=== PATIENT | female | born 1955 | race Caucasian/White ===

== ENCOUNTER → 2017-06-23 | Outpatient (CLI) | payer OTHER ==
[~2017-06-23] MED LIST: JOINCAP2 PO; LEVO.075 PO; MAGN400T3 PO; VITA1000 PO; VITA500C18 PO
[2017-06-23 09:21] LABS: HEMATOCRIT 37.6 % (35.0-46.0); HEMOGLOBIN 12.9 GM/DL (11.6-15.3); MEAN CELL VOLUME 96.8 FL (80.0-100.0); MEAN CORPUSCULAR HEMOGLOBIN 33.2 PG (27.0-34.0); MEAN CORPUSCULAR HGB CONC 34.4 % (32.0-36.0); MEAN PLATELET VOLUME 9.2 FL (7.0-11.0); PLATELET COUNT 286 TH/MM3 (150-450); RED BLOOD COUNT 3.89 MIL/MM3 (4.00-5.30); RED CELL DISTRIBUTION WIDTH 13.3 % (11.6-17.2); WHITE BLOOD COUNT 4.1 TH/MM3 (4.0-11.0)
[2017-06-23 09:41] LABS: BILIRUBIN, URINE NEG (NEG); BLOOD, URINE NEG (NEG); GLUCOSE,URINE NEG (NEG); KETONE, URINE NEG (NEG); MUCUS URINE FEW /lpf (OCC); NITRITE,URINE NEG (NEG); URINE COLOR YELLOW (YELLW/STRAW); URINE LEUKOCYTE ESTERASE NEG (NEG)
[2017-06-23 09:51] LABS: BICARBONATE 28.8 MEQ/L (21.0-32.0); CALCIUM 9.4 MG/DL (8.5-10.1); CREATININE 0.75 MG/DL (0.50-1.00)
--- NOTE | 2017-06-25 00:33 | EKG ---
Date Performed: 06/23/2017 Time Performed: 08:34:26 PTAGE: 62 years EKG: Sinus rhythm NORMAL ECG NO PREVIOUS TRACING DOCTOR: Harlan Dickerson Interpretating Date/Time 06/25/2017 00:32:41
== END ==
LOC: CPRE 07:53
PROVIDERS: ATTEND Orthopaedic Surgery
DX: Z01.812 Encounter for preprocedural laboratory examination (principal); Z01.810 Encounter for preprocedural cardiovascular examination; M87.051 Idiopathic aseptic necrosis of right femur; M16.11 Unilateral primary osteoarthritis, right hip; M79.609 Pain in unspecified limb
CPT/HCPCS: 36415; 80048; 81001; 85027; 85610; 85730; 93005

== ENCOUNTER → 2017-08-04 | Outpatient (CLI) | payer OTHER ==
[2017-08-04 10:48] LABS: BASOPHIL % 0.7 % (0.0-2.0); EOSINOPHIL # 0.2 TH/MM3 (0-0.4); EOSINOPHIL % 3.8 % (0.0-4.0); HEMOGLOBIN 12.9 GM/DL (11.6-15.3); LYMPH % 43.3 % (9.0-44.0); MEAN CELL VOLUME 97.2 FL (80.0-100.0); MEAN PLATELET VOLUME 9.7 FL (7.0-11.0); MONO % 9.3 % (0.0-8.0); MONOCYTE # 0.4 TH/MM3 (0-0.9); NEUT % 42.9 % (16.0-70.0); PLATELET COUNT 282 TH/MM3 (150-450); RED BLOOD COUNT 3.91 MIL/MM3 (4.00-5.30); RED CELL DISTRIBUTION WIDTH 13.7 % (11.6-17.2); WHITE BLOOD COUNT 4.7 TH/MM3 (4.0-11.0)
[2017-08-04 10:58] LABS: BACTERIA, URINE RARE /hpf; BILIRUBIN, URINE NEG (NEG); BLOOD, URINE NEG (NEG); GLUCOSE,URINE NEG (NEG); KETONE, URINE NEG (NEG); NITRITE,URINE NEG (NEG); PH, URINE 5.5 (5.0-8.5); URINE COLOR YELLOW (YELLW/STRAW); URINE LEUKOCYTE ESTERASE NEG (NEG)
== END ==
LOC: CPRE 08:58
PROVIDERS: ATTEND Orthopaedic Surgery
DX: Z01.812 Encounter for preprocedural laboratory examination (principal); M87.051 Idiopathic aseptic necrosis of right femur; M16.11 Unilateral primary osteoarthritis, right hip; M79.609 Pain in unspecified limb; R82.99 Other abnormal findings in urine
CPT/HCPCS: 36415; 81001; 85025; 87086

== ENCOUNTER 2017-08-15 05:10 | Inpatient (IN) | payer OTHER ==
[~2017-08-15] VITALS: Ht 162.6 cm; Wt 67.4 kg
[2017-08-15] MEDS ORDERED: CHLORHEXIDINE GLUCONATE 4% SOLN 120 ML BTL TOPICAL SCH (05:30)
[2017-08-15] MEDS ORDERED: CEFAZOLIN INJ 2,000 MG in SODIUM CHLORIDE 0.9% INJ 100 ML IV SCH (05:30)
[2017-08-15] MEDS ORDERED: METOPROLOL TARTRATE 25 MG TAB PO PRN (05:45)
[2017-08-15] MEDS ORDERED: LACTATED RINGER'S 1000 ML IV PRN (05:45)
[2017-08-15] MEDS ORDERED: POVIDONE IODINE 5% (ANTISEPSIS KIT) 4 APPLICATIONS EACH NARE PRN (05:45)
[2017-08-15] MEDS ORDERED: SODIUM CHLORID 0.9% 500 ML IV PRN (05:45)
[2017-08-15] MEDS ORDERED: CHLORHEXIDINE GLUCONATE 2 % 1 PACK (2 CLOTHS) TOPICAL PRN (05:45)
[2017-08-15] MEDS ORDERED: ceFAZolin INJ 1,000 MG VIAL ONE (06:10)
[2017-08-15] MEDS ORDERED: GENTAMICIN SULFATE 80 MG/2 ML VIAL ONE (06:11)
[2017-08-15] MEDS ORDERED: EXPAREL PERI-ARTICULAR INJECTION (TOTAL VOL. 60 ML) P-ARTICULR SCH ×2 (07:00)
[2017-08-15] MEDS ORDERED: SODIUM CHLORIDE 0.9% IV SCH ×2 (07:00→10:00)
[2017-08-15] MEDS ORDERED: TRANEXAMIC ACID IV SCH ×2 (07:00→10:00)
--- NOTE | 2017-08-15 09:07 | HHI.FF ---
Face to Face Verification Diagnosis: (1) Status post total hip replacement, right Physical Therapy Gait training Hip: Total hip, Protocol: Right, Posterior hip precautions, Progress to weight bearing Canvas Knee Splint: When in bed & 2 pillows btw thighs Right LE Weight Bearing: WB as tolerated Right LE Range of Motion: Active ROM Nursing Nursing: Dressing changes Dressing Changes: Daily dressing change, Coverderm/Primapore Additional Instructions Not remove Dermabond Prineo. I have seen patient Melisa Devine on 08/15/17. My clinical findings support the need for the requested home health care services because: Ltd mobility - disease progression Limited ability to care for self High risk of falls I certify that my clinical findings support that this patient is homebound because: Post-op weakness Unsteady gait/balance Unsafe to leave home unassisted Lalitha Sellers MD ([place]) Aug 15, 2017 09:07
[2017-08-15] MEDS ORDERED: ECASA81 PO (09:09)
[2017-08-15] MEDS ORDERED: HYDR-3580 PO (09:09)
[2017-08-15] MEDS ORDERED: MAGNESIUM HYDROXIDE SUSP 30 ML CUP PO PRN (09:15)
[2017-08-15] MEDS ORDERED: Post-op Orders (for Pharmacy) XX ONE (09:15)
[2017-08-15] MEDS ORDERED: BISACODYL 10 MG SUPP RECTAL PRN (09:15)
[2017-08-15] MEDS ORDERED: ACETAMINOPHEN/HYDROcodone 325 MG/7.5 MG TAB PO PRN (09:15)
[2017-08-15] MEDS ORDERED: ONDANSETRON HCL 4 MG/2 ML VIAL IVP PRN (09:15)
[2017-08-15] MEDS ORDERED: TRANEXAMIC ACID INJ 0 MG in SODIUM CHLORIDE 0.9% INJ 100 ML IV SCH (09:15)
--- NOTE | 2017-08-15 09:20 | PD.OP ---
Operative Report Date of Surgery: Aug 15, 2017 Preoperative Diagnosis: (1) Osteonecrosis of right hip (2) Primary osteoarthritis of right hip Postoperative Diagnosis: (1) Osteonecrosis of right hip (2) Primary osteoarthritis of right hip Procedure: Right total hip arthroplasty using Maged prosthesis. Anesthesia: Gen. endotracheal with supplemental local with Exparel. Surgeon: Aidan Sellers M.D. Change Advisor(s): RAMIREZ Puente Operation and Findings: Indications and Findings: This 62-year-old woman has had right hip pain for in excess of 6 months. This has been progressive and progressively disabling. Her ambulation tolerance is 1 block. She has difficulty entering and exiting vehicles and has difficulty with any stairs or standing from a seated position. She has episodic giving way. She has not responded to conservative measures including anti-inflammatory agents analgesics and activity modification and exercises and ambulatory aids. Physical findings showed limited range of motion with tenderness on motion. X-rays and MRI show changes in the femoral head consistent with osteonecrosis of the femoral head with degenerative change with osteophyte and cyst formation in the acetabular as well as the femoral side. Intraoperative findings: There was significant irregularity and articular damage to the femoral head with osteophytes, open areas of bone and destruction. In addition the acetabulum had some osteophytes as well as degenerative cysts. Implants: The femoral component was a Maged Accolade 2 stem, size 5 with a 132 neck angle. The head was a Biolox delta, with a 32 millimeter outer diameter, -4 millimeter neck length. The acetabular component is a Tritanium cluster shell, size 52 outer diameter with a 0, X3 polyethylene liner, size 32 millimeters inner diameter. The patient was brought to the clean air operating suite and a general endotracheal anesthetic was administered. The patient was then positioned into a lateral position with the right hip up on a Penemarie K Murphy lateral positioner. The hip and lower extremity were then prepped with alcohol, Hibiclens and ChloraPrep and draped in the usual manner with the hip draped free. Patient received prophylactic antibiotics preoperatively. The patient also received tranexamic acid preoperatively. An appropriate timeout procedure was carried out. An incision was then made from the midportion of the greater trochanter proximally and posteriorly paralleling the fibers of the gluteus iqra. The incision was deepened through subcutaneous tissues down to the fascia felix and gluteus fascia. The gluteus fascia was then split longitudinally in line with its fibers up to the upper portion of the fascia felix. With wound towels in place, the Charnley retractor was inserted. The sciatic nerve was identified and protected throughout the procedure. Dissection was then carried down to the interval between the gluteus minimus and the piriformis. A retractor was inserted. The piriformis and obturator conjoined tendon was released from the greater trochanter and reflected off the capsule. A capsulotomy was made longitudinally along the femoral neck to the base of the femoral neck and then curved distally along the posterior aspect of the greater trochanter. The hip was then internally rotated. Further release of the external rotators was carried out exposing the hip. The hip was then dislocated. The femoral neck was transected at the appropriate level using the oscillating saw placement of appropriate retractors. The femoral head was then removed. Preparation of the femur was initiated with a box osteotome followed by a curet to identify the medullary canal. Broaching was then initiated with the size 0 broach and went and 1 size increments up to size 5. The broach handle was removed. The femoral neck was then trimmed with a calcar planar. Attention was then directed to the acetabulum. Soft tissues were debrided from the acetabulum. Retractors were placed about the acetabulum. Reaming was then initiated with the 47 millimeter reamer and went in to millimeter increments up to size 51 and then in 1 mm increments up to the 52 millimeter diameter reamer. A trial reduction with the -4 millimeter trial prosthesis was carried out. When this was deemed to be appropriate, the trial prosthesis was removed. The acetabulum was then irrigated and cleaned. The actual prosthesis as noted above was then impacted into place and seated appropriately. Drill holes were then made and sounded. Appropriate sized screws were then inserted to stabilize the acetabulum further. The liner as noted above was then inserted into the acetabular shell and impacted into place. Osteophytes were trimmed from the acetabulum. Local anesthetic was then administered throughout the area of the acetabulum and anterior aspect of the femur. The trial neck was then placed on the broach for the above-noted prosthesis. The femoral head trial was placed onto the femoral neck with the external diameter of the head being 32 millimeters and the neck length being -4 millimeters. A trial reduction was then carried out. The stability, leg length and motion were excellent. There was no pistoning. The trial prosthesis was removed. The broach was removed. The femoral component was then impacted into the medullary canal of the femur after irrigation and suctioning. When this was appropriately seated a trial reduction was again carried out with the trial prosthesis. Again, there was no pistoning. The leg length was appropriate. The stability and motion were excellent. The trial prosthesis was then removed. After cleaning and drying the trunion of the femoral component, the above-noted femoral head was impacted onto the trunnion. The hip was then reduced. The stability and mobility were again checked along with leg lengths as noted above. The hip was then positioned appropriately and closure commenced after the remainder of the local anesthetic was injected throughout the hip. The external rotators and capsule were then repaired with #1 Vicryl interrupted transosseous sutures with a Krakw technique to reattach the external rotators and capsule to the posterior aspect of the greater trochanter. The capsule itself on the superior aspect was closed with #1 Vicryl interrupted [id number] sutures. The sciatic nerve was again inspected. The fascia felix and gluteus fascia were then repaired with #1 Vicryl interrupted [id number] sutures. The subcutaneous tissues were closed with 2-0 Vicryl interrupted simple sutures with buried knots. The skin was closed with a continuous subcuticular closure of 4-0 Monocryl. The wound was then approximated with Dermabond Prineo. A dry dressing was applied to the hip. A knee immobilizer was applied to the leg. The patient was then transferred from the operating room to the recovery room in satisfactory condition having tolerated the procedure well. Counts are correct. Specimens: None. Estimated blood loss: 200 mL Lalitha Sellers MD ([place]) Aug 15, 2017 09:20
[2017-08-15] MEDS ORDERED: DO NOT ADM ANY ANTICOAGULANT DRUGS PRN (09:24)
[2017-08-15] MEDS ORDERED: MIDAZOLAM HCL 2 MG/2 ML VIAL ONE (09:31)
[2017-08-15] MEDS ORDERED: *morphine SULFATE 4 MG/ML PERIprocedure ONLY ONE (09:47)
[2017-08-15] MEDS: LACTATED RINGER'S 1000 ML INJ 1,000 ML IV SCH (10:15)
--- NOTE | 2017-08-15 11:26 | RADRPT ---
EXAM DATE/TIME: 08/15/2017 10:17 [place] COMPARISON: No previous studies available for comparison. INDICATIONS : Post-op right hip. MEDICAL HISTORY : None. SURGICAL HISTORY : None. ENCOUNTER: Initial ACUITY: 1 day PAIN SCORE: 0/10 LOCATION: Right Hip. FINDINGS: There is a right total hip arthroplasty that appears intact and normally aligned. No unexpected radio paque objects. No fracture. CONCLUSION: Expected radiographic appearance after right total hip arthroplasty. No acute complication demonstrat ed. Reed Kline MD on August 15, 2017 at 11:23 Board Certified Radiologist. This report was verified electronically.
[2017-08-15] MEDS ORDERED: MORPHINE SULFATE 4 MG/ML INJ IV PUSH PRN (11:30)
[2017-08-15] MEDS ORDERED: DEXAMETHASONE SOD PHOS 4 MG/ML VIAL IV ONE (12:00)
[2017-08-15] MEDS ORDERED: PHENYLEPH/NS 1000 MCG/10 ML SYR IV ONE (12:00)
[2017-08-15] MEDS ORDERED: ePHEDrine/NS 25 MG/5 ML SYRINGE IV ONE (12:00)
[2017-08-15] MEDS ORDERED: ROCURONIUM INJ 50 MG/5 ML SYRINGE IV PUSH ONE (12:00)
[2017-08-15] MEDS ORDERED: PROPOFOL 200 MG/20 ML AMP IV ONE (12:00)
[2017-08-15] MEDS ORDERED: LIDOCAINE HCL 1% PF 5 ML SYRINGE OTHER ONE (12:00)
[2017-08-15] MEDS ORDERED: LACTATED RINGER'S 1000 ML INJ 1,000 ML IV ONE (12:00)
[2017-08-15] MEDS ORDERED: GLYCOPYRROLATE 1 MG/5 ML SYRINGE IV PUSH ONE (12:00)
[2017-08-15] MEDS ORDERED: NEOSTIGMINE 5 MG/5 ML SYRINGE IV PUSH ONE (12:00)
[2017-08-15] MEDS ORDERED: ONDANSETRON HCL 4 MG/2 ML VIAL IV ONE (12:00)
[2017-08-15] MEDS: ACETAMINOPHEN/HYDROcodone 325 MG/7.5 MG TAB PO PRN (14:00)
[2017-08-15 14:39] VITALS: BP 136/86; PULSE 108; RESP 18; TEMP 97.1; O2SAT 99
[2017-08-15] MEDS: KETOROLAC TROMETHAMINE 30 MG/ML (IVP) VIAL IVP SCH ×2 (16:18→21:38)
--- NOTE | 2017-08-15 19:54 | PD.CONS ---
HPI Service [facility] Hospitalists Consult Requested By Dr Sellers Reason for Consult Medical management Primary Care Physician Herbie Bruner MD Diagnoses: History of Present Illness This is a 61-year-old female with history of hypothyroidism who presents to [facility] complaining of 8-9 months of right hip pain. The patient said that she started limping and then developed right hip pain which progressively got worst after the point where it was difficult to ambulate. The patient states that the pain was located in the right hip, nonradiating worse with ambulation and improves with rest. The patient states that she then visited Dr. Sellers who did an x-ray which did not show a clear etiology of the patient's right hip pain. An MRI of the right hip was then obtained and she was then diagnosed with some necrosis of the right hip. The patient underwent today a total hip arthroplasty performed by Dr. Sellers and I am being consulted for medical management. The patient currently denies chest pain , shortness of breath, nausea, vomiting, diarrhea, dysuria. States the pain is controlled. Postsurgical right hip x-ray showed a expected radiographic appearance of the right total hip arthroplasty. Review of Systems As per HPI, other systems reviewed by me and negative. Past Family Social History Allergies: Coded Allergies: No Known Allergies (Unverified , 08/15/17) Past Medical History 1. Osteoarthritis. 2. Hypothyroidism Past Surgical History 1. Surgical repair for detached retina is in bilateral eyes. 2. Bilateral cataract surgery. 3. Tubal ligation. 4. Facelift. 5. Breast implants. Reported Medications Reported Meds & Active Scripts Active Hydrocodone-Acetamin 7.5-325 (Hydrocodone/Acetaminophen) 7.5 Mg-325 Mg Tablet 1 Tab PO Q4H PRN Reported Joint Support Complex (Misc Natural Products) 500-100 Mg Cap 1 Cap PO DAILY Vitamin D-1000 (Cholecalciferol) 1,000 Unit Tab 1,000 Units PO DAILY Magnesium 400 Mg Tab 400 Mg PO DAILY Vitamin C Sr (Ascorbic Acid) 500 Mg Caper 500 Mg PO DAILY Synthroid (Levothyroxine Sodium) 75 Mcg Tab 75 Mcg PO DAILY Active Ordered Medications Current Medications Medications (Trade) Dose Ordered Sig/Rosalie Route Start Time Stop Time Status Last Admin (Hibiclens 4% Top Soln) 1 applic ONCE TOPICAL 08/15/17 05:30 08/18/17 05:29 Lactated Ringer's 1,000 ml @ 30 mls/hr Q24H PRN IV 08/15/17 05:45 08/18/17 05:44 08/15/17 06:00 Sodium Chloride 500 ml @ 30 mls/hr [id number] PRN IV 08/15/17 05:45 08/18/17 05:44 (Lopressor) 25 mg [employer] PRN PO 08/15/17 05:45 08/18/17 05:44 (Betadine 5% Antisepsis Kit) 1 applic [employer] PRN EACH NARE 08/15/17 05:45 08/18/17 05:44 08/15/17 06:15 (Chlorhexidine 2% Cloth) 3 pack [employer] PRN TOPICAL 08/15/17 05:45 08/18/17 05:44 08/15/17 05:30 Lactated Ringer's 1,000 ml @ 80 mls/hr [id number] IV 08/15/17 11:30 08/15/17 10:15 Cefazolin Sodium 1000 mg/Sodium Chloride 100 ml @ 200 mls/hr Q6H IV 08/15/17 13:00 08/16/17 01:29 08/15/17 18:16 (Morphine Inj) 4 mg Q3H PRN IV PUSH 08/15/17 11:30 ([place] 7.5-325 Mg) 1 tab Q4H PRN PO 08/15/17 09:15 08/15/17 14:00 ([place] 7.5-325 Mg) 2 tab Q4H PRN PO 08/15/17 09:15 (Toradol Inj) 15 mg Q6H IVP 08/15/17 16:00 08/17/17 10:01 08/15/17 16:18 (Zofran Inj) 4 mg Q6H PRN IVP 08/15/17 09:15 (Colace) 100 mg BID PO 08/16/17 21:00 (Ambien) 5 mg HS PRN PO 08/15/17 21:00 (Dulcolax Supp) 10 mg DAILY PRN RECTAL 08/15/17 09:15 (Milk Of Magnesia Liq) 30 ml DAILY PRN PO 08/15/17 09:15 (Ecotrin Ec) 81 mg BID PO 08/16/17 08:30 (Vitamin D3) 1,000 units DAILY PO 08/16/17 09:00 (Synthroid) 75 mcg DAILY@0600 PO 08/16/17 06:00 (Mag-Ox) 400 mg Q24H PO 08/16/17 11:00 Patient Own Medication PT OWN MED: ASCOR... DAILY PO 08/16/17 09:00 Future Hold Miscellaneous Information ALL NURSING DEPARTME... UNSCH PRN .XX 08/15/17 09:24 08/16/17 09:23 Family History Family history of diabetes cancer or heart disease. Social History Patient denies smoking, drinking alcohol or using illicit drugs. The patient is and has 4 children. Physical Exam Vital Signs Vital Signs Date Time Temp Pulse Resp B/P (MAP) Pulse Ox O2 Delivery O2 Flow Rate FiO2 08/15/17 14:39 97.1 108 18 136/86 (103) 99 08/15/17 14:00 82 14 123/62 (82) 100 Room Air 08/15/17 13:00 89 14 116/58 (77) 98 Nasal Cannula 2 08/15/17 12:00 83 14 130/61 (84) 100 Nasal Cannula 2 08/15/17 11:00 67 14 133/63 (86) 100 Nasal Cannula 2 08/15/17 10:30 69 14 125/67 (86) 100 Nasal Cannula 2 08/15/17 10:15 56 14 122/63 (82) 100 Nasal Cannula 2 08/15/17 10:00 59 14 113/58 (76) 100 Nasal Cannula 2 08/15/17 09:45 68 14 123/60 (81) 100 Nasal Cannula 2 08/15/17 09:28 97.5 76 14 125/58 (80) 100 Simple Mask 8 08/15/17 06:10 98.7 79 18 115/61 (79) 99 Physical Exam GENERAL: This is a well-nourished, well-developed patient, in no apparent distress. SKIN: No rashes, ecchymoses or lesions. Cool and dry. HEAD: Atraumatic. Normocephalic. No temporal or scalp tenderness. EYES: Pupils equal round and reactive. Extraocular motions intact. No scleral icterus. No injection or drainage. ENT: Nose without bleeding, purulent drainage or septal hematoma. Throat without erythema, tonsillar hypertrophy or exudate. Uvula midline. Airway patent. NECK: Trachea midline. No JVD or lymphadenopathy. Supple, nontender, no meningeal signs. CARDIOVASCULAR: Regular rate and rhythm without murmurs, gallops, or rubs. RESPIRATORY: Clear to auscultation. Breath sounds equal bilaterally. No wheezes , rales, or rhonchi. GASTROINTESTINAL: Abdomen soft, non-tender, nondistended. No hepato-splenomegaly , or palpable masses. No guarding. MUSCULOSKELETAL:wearing the knee immobilizer, dressings dry and intact. Palpable pedal pulses +2 bilateral. Good capillary refill. NEUROLOGICAL: Awake and alert. Cranial nerves II through XII intact. Motor and sensory grossly within normal limits. Five out of 5 muscle strength in all muscle groups. Normal speech. Imaging Last Impressions Hip X-Ray 08/15/17 0901 Signed Impressions: Service Date/Time: Tuesday, August 15, 2017 10:17 - CONCLUSION: Expected radiographic appearance after right total hip arthroplasty. No acute complication demonstrated. Reed Kline MD Assessment and Plan Problem List: (1) Osteonecrosis of right hip ICD Code: M87.9 - Osteonecrosis, unspecified Status: Resolved (2) Primary osteoarthritis of right hip ICD Code: M16.11 - Unilateral primary osteoarthritis, right hip Status: Resolved (3) Status post total hip replacement, right ICD Code: Z96.641 - Presence of right artificial hip joint Assessment and Plan Postsurgical management as per orthopedic surgery. We will pain control as per orthopedic surgery. Patient on [place] and morphine sulfate for breakthrough pain. Bowel regimen for constipation prevention. Continue levothyroxine for hypothyroidism. Patient can have a TSH follow-up as an outpatient. Monitor vital signs. Chemoprophylaxis as per orthopedic surgery. Code Status Full code Discussed Condition With Patient, RN. Tristian Guthrie MD Aug 15, 2017 19:54
[2017-08-15 20:13] VITALS: O2SAT 99
[2017-08-15] MEDS ORDERED: ZOLPIDEM TARTRATE 5 MG TAB PO PRN (21:00)
[2017-08-15 21:25] VITALS: BP 108/54; PULSE 88; RESP 16; TEMP 98.9; O2SAT 98
[2017-08-15 23:15] VITALS: BP 102/53; PULSE 75; RESP 16; TEMP 98.5; O2SAT 96
[2017-08-16] MEDS: ACETAMINOPHEN/HYDROcodone 325 MG/7.5 MG TAB PO PRN ×3 (01:41→14:15)
[2017-08-16] MEDS: KETOROLAC TROMETHAMINE 30 MG/ML (IVP) VIAL IVP SCH ×2 (04:00→09:28)
[2017-08-16 05:43] LABS: HEMATOCRIT 27.3 % (35.0-46.0); HEMOGLOBIN 9.4 GM/DL (11.6-15.3)
[2017-08-16] MEDS ORDERED: LEVOTHYROXINE SODIUM 75 MCG TAB PO SCH (06:00)
--- NOTE | 2017-08-16 06:52 | PD.ORT.PN ---
Subjective Post Op Day #: 1 Subjective Remarks She is doing well. There is less pain now than there was preoperatively. She did well with walking. Distance Walked 150 feet with PT. Objective Vitals Vital Signs Date Time Temp Pulse Resp B/P (MAP) Pulse Ox O2 Delivery O2 Flow Rate FiO2 08/15/17 23:15 98.5 75 16 102/53 (69) 96 08/15/17 21:25 98.9 88 16 108/54 (72) 98 08/15/17 20:13 99 21 08/15/17 14:39 97.1 108 18 136/86 (103) 99 08/15/17 14:00 82 14 123/62 (82) 100 Room Air 08/15/17 13:00 89 14 116/58 (77) 98 Nasal Cannula 2 08/15/17 12:00 83 14 130/61 (84) 100 Nasal Cannula 2 08/15/17 11:00 67 14 133/63 (86) 100 Nasal Cannula 2 08/15/17 10:30 69 14 125/67 (86) 100 Nasal Cannula 2 08/15/17 10:15 56 14 122/63 (82) 100 Nasal Cannula 2 08/15/17 10:00 59 14 113/58 (76) 100 Nasal Cannula 2 08/15/17 09:45 68 14 123/60 (81) 100 Nasal Cannula 2 08/15/17 09:28 97.5 76 14 125/58 (80) 100 Simple Mask 8 I/O 08/15/17 08/15/17 08/15/17 08/16/17 08/16/17 08/16/17 07:00 15:00 23:00 07:00 15:00 23:00 Intake Total 2086.74 ml 240 ml 100 ml Output Total 650 ml Balance 1436.74 ml 240 ml 100 ml Intake Oral 480 ml IV Total 1606.74 ml 240 ml 100 ml Output Urine Total 450 ml Estimated Blood Loss 200 ml Result Diagram: 08/16/17 0517 Imaging Last 24 hours Impressions Hip X-Ray 08/15/17 0901 Signed Impressions: Service Date/Time: Tuesday, August 15, 2017 10:17 - CONCLUSION: Expected radiographic appearance after right total hip arthroplasty. No acute complication demonstrated. Reed Kline MD Objective Remarks She is resting comfortably, supine in bed, wearing the knee immobilizer. The neurovascular status is intact. The dressing is dry and intact. Assessment & Plan Ortho Post Op Day #: 1 Problem List: (1) Osteonecrosis of right hip ICD Codes: M87.9 - Osteonecrosis, unspecified Status: Resolved (2) Primary osteoarthritis of right hip ICD Codes: M16.11 - Unilateral primary osteoarthritis, right hip Status: Resolved (3) Status post total hip replacement, right ICD Codes: Z96.641 - Presence of right artificial hip joint Plan: Continue postoperative care and PT. Assessment and Plan Condition: Good. Orthopedically stable. DVT prophylaxis: Sequentials, ANNA stockings, aspirin 81 mg twice daily. Discharge plans: Home with home health care. An appointment was scheduled through the office. Prescriptions: [place] 7.5/325 Lalitha Sellers MD (Charles) Aug 16, 2017 06:52
--- NOTE | 2017-08-16 07:42 | HHI.DS ---
Discharge Summary Admission Date Aug 15, 2017 at 05:10 Discharge Date: Aug 16, 2017 Admitting Diagnosis Primary osteoarthritis right hip and osteonecrosis (Ficat 4) right femoral head. Diagnosis: (1) Osteonecrosis of right hip Diagnosis: Principal ICD Codes: M87.9 - Osteonecrosis, unspecified Status: Resolved (2) Primary osteoarthritis of right hip Diagnosis: Principal ICD Codes: M16.11 - Unilateral primary osteoarthritis, right hip Status: Resolved (3) Status post total hip replacement, right Diagnosis: Principal ICD Codes: Z96.641 - Presence of right artificial hip joint Procedures Right total hip arthroplasty using Ruffin prosthesis on 08/15/2017. Brief History This is a 62 year old female patient who has had progressive increasing right pain over the past several months interfering with her activities of daily living. Her ambulation tolerance had decreased substantially. This is covered within the history and physical. She has not responded to conservative measures. Physical findings showed limited range of motion to the significantly antalgic gait and tenderness on motion. CBC/BMP: 08/16/17 0517 Significant Findings Laboratory Tests Test 08/16/17 05:17 Hemoglobin 9.4 GM/DL (11.6-15.3) Hematocrit 27.3 % (35.0-46.0) Imaging Last 72 hours Impressions Hip X-Ray 08/15/17 0901 Signed Impressions: Service Date/Time: Tuesday, August 15, 2017 10:17 - CONCLUSION: Expected radiographic appearance after right total hip arthroplasty. No acute complication demonstrated. Reed Kline MD PE at Discharge She is resting comfortably, supine in bed, wearing the knee immobilizer. The neurovascular status is intact. The dressing is dry and intact. Hospital Course The patient was admitted as noted above. The above noted operative procedure was carried out that day. Preoperatively prophylactic antibiotics were administered Ancef according to protocol. These were continued postoperatively. The patient also received tranexamic acid to help with hemostasis according to protocol. In the postanesthesia care unit, mechanical methods of DVT prophylaxis in the form of ANNA stockings and sequentials were initiated. Physical therapy was initiated on the day of surgery. She was able to walk 150 feet with physical therapy on the day of surgery. On postoperative day #1 physical therapy continued. DVT prophylaxis with aspirin 81 mg was initiated at this time. The patient continued physical therapy throughout the hospitalization. The distance walked improved throughout the hospitalization. The patient was discharged on postoperative day 1 with the disposition being to home with home health care. An appointment for follow-up was made prior to admission. Pt Condition on Discharge: Good Discharge Disposition: Disch w/ Home Health Serv Discharge Instructions Diet Instructions: As Tolerated, No Restrictions Activities You Can Perform: Full Weight Bearing, Shower Only-No Bath Activities to Avoid: Lifting/Bending, Strenuous Activity, Bathing, Driving Follow up Referrals: Orthopedics with Lalitha Sellers MD ([place]) New Medications: Aspirin DR (Aspirin DR) 81 Mg Tabdr 81 MG PO BID for Prevent Blood Clot for 30 Days, #60 TAB Hydrocodone/Acetaminophen (Hydrocodone-Acetamin 7.5-325) 7.5 Mg-325 Mg Tablet 1 TAB PO Q4H PRN for PAIN SCALE 1 TO 10, #30 TAB Continued Medications: Ascorbic Acid ER (Vitamin C Sr) 500 Mg Caper 500 MG PO DAILY for Nutritional Supplement, CAP 0 Refills Cholecalciferol (Vitamin D-1000) 1,000 Unit Tab 1000 UNITS PO DAILY for Nutritional Supplement, #1 BOTTLE 0 Refills Levothyroxine (Synthroid) 75 Mcg Tab 75 MCG PO DAILY for Thyroid, #30 TAB 0 Refills Magnesium (Magnesium) 400 Mg Tab 400 MG PO DAILY for Nutritional Supplement, TAB 0 Refills Misc Natural Products (Joint Support Complex) 500-100 Mg Cap 1 CAP PO DAILY Lalitha Sellers MD ([place]) Aug 16, 2017 07:42
[2017-08-16 07:53] VITALS: BP 107/54; PULSE 80; RESP 18; TEMP 98.3; O2SAT 96
[2017-08-16] MEDS ORDERED: ASPIRIN EC 81 MG TABEC PO SCH (08:30)
[2017-08-16] MEDS ORDERED: ASCORBIC ACID 500 MG PO SCH (09:00)
[2017-08-16] MEDS ORDERED: CHOLECALCIFEROL (VIT D3) 1000 UNIT TAB PO SCH (09:00)
[2017-08-16] MEDS ORDERED: NATURAL PRODUCTS PO SCH (09:00)
[2017-08-16 09:39] VITALS: BP 98/55; PULSE 65
[2017-08-16] MEDS ORDERED: MAGNESIUM OXIDE 400 MG TAB PO SCH (11:00)
[2017-08-16 11:56] VITALS: O2SAT 96
[2017-08-16 12:00] VITALS: BP 110/51; PULSE 71; RESP 18; TEMP 97.7; O2SAT 96
--- NOTE | 2017-08-16 12:17 | HHI.PR ---
Subjective Remarks Pain controlled, denies fevers or chills, denies chest pain or shortness of breath. Objective Vitals Vital Signs Date Time Temp Pulse Resp B/P (MAP) Pulse Ox O2 Delivery O2 Flow Rate FiO2 08/16/17 12:00 97.7 71 18 110/51 (70) 96 08/16/17 11:56 96 08/16/17 09:39 65 98/55 (69) 08/16/17 07:53 98.3 80 18 107/54 (71) 96 08/15/17 23:15 98.5 75 16 102/53 (69) 96 08/15/17 21:25 98.9 88 16 108/54 (72) 98 08/15/17 20:13 99 21 08/15/17 14:39 97.1 108 18 136/86 (103) 99 08/15/17 14:00 82 14 123/62 (82) 100 Room Air 08/15/17 13:00 89 14 116/58 (77) 98 Nasal Cannula 2 I/O 08/15/17 08/15/17 08/15/17 08/16/17 08/16/17 08/16/17 07:00 15:00 23:00 07:00 15:00 23:00 Intake Total 2086.74 ml 240 ml 100 ml 720 ml Output Total 650 ml Balance 1436.74 ml 240 ml 100 ml 720 ml Intake Oral 480 ml 720 ml IV Total 1606.74 ml 240 ml 100 ml Output Urine Total 450 ml Estimated Blood Loss 200 ml # Voids 3 # Bowel Movements 0 Result Diagram: 08/16/17 0517 Imaging Last Impressions Hip X-Ray 08/15/17 09 Signed Impressions: Service Date/Time: Tuesday, August 15, 2017 10:17 - CONCLUSION: Expected radiographic appearance after right total hip arthroplasty. No acute complication demonstrated. Reed Kline MD Objective Remarks AAOx3 nad Clear lungs BL S1S2 RRR abdomen soft, nt no edema in extremities wearing the knee immobilizer, dressing dry and intact. Medications and IVs Current Medications Medications (Trade) Dose Ordered Sig/Rosalie Route Start Time Stop Time Status Last Admin (Hibiclens 4% Top Soln) 1 applic ONCE TOPICAL 08/15/17 05:30 08/18/17 05:29 Lactated Ringer's 1,000 ml @ 30 mls/hr Q24H PRN IV 08/15/17 05:45 08/18/17 05:44 08/15/17 06:00 Sodium Chloride 500 ml @ 30 mls/hr [id number] PRN IV 08/15/17 05:45 08/18/17 05:44 (Lopressor) 25 mg IT [employer]ICE [employer]UITY SUPERVISOR PRN PO 08/15/17 05:45 08/18/17 05:44 (Betadine 5% Antisepsis Kit) 1 applic IT SERVICE [employer]INUITY SUPERVISOR PRN EACH NARE 08/15/17 05:45 08/18/17 05:44 08/15/17 06:15 (Chlorhexidine 2% Cloth) 3 pack IT SERVICE CONTINUITY SUPERVISOR PRN TOPICAL 08/15/17 05:45 08/18/17 05:44 08/15/17 05:30 Lactated Ringer's 1,000 ml @ 80 mls/hr [id number] IV 08/15/17 11:30 08/15/17 10:15 (Morphine Inj) 4 mg Q3H PRN IV PUSH 08/15/17 11:30 ([place] 7.5-325 Mg) 1 tab Q4H PRN PO 08/15/17 09:15 08/16/17 05:57 ([place] 7.5-325 Mg) 2 tab Q4H PRN PO 08/15/17 09:15 (Toradol Inj) 15 mg Q6H IVP 08/15/17 16:00 08/17/17 10:01 08/16/17 09:28 (Zofran Inj) 4 mg Q6H PRN IVP 08/15/17 09:15 (Colace) 100 mg BID PO 08/16/17 21:00 (Ambien) 5 mg HS PRN PO 08/15/17 21:00 (Dulcolax Supp) 10 mg DAILY PRN RECTAL 08/15/17 09:15 (Milk Of Magnesia Liq) 30 ml DAILY PRN PO 08/15/17 09:15 (Ecotrin Ec) 81 mg BID PO 08/16/17 08:30 08/16/17 09:27 (Vitamin D3) 1,000 units DAILY PO 08/16/17 09:00 08/16/17 09:27 (Synthroid) 75 mcg DAILY@0600 PO 08/16/17 06:00 08/16/17 05:55 (Mag-Ox) 400 mg Q24H PO 08/16/17 11:00 08/16/17 11:21 Patient Own Medication PT OWN MED: ASCOR... DAILY PO 08/16/17 09:00 Future Hold A/P Problem List: (1) Osteonecrosis of right hip ICD Code: M87.9 - Osteonecrosis, unspecified Status: Resolved (2) Primary osteoarthritis of right hip ICD Code: M16.11 - Unilateral primary osteoarthritis, right hip Status: Resolved (3) Status post total hip replacement, right ICD Code: Z96.641 - Presence of right artificial hip joint Assessment and Plan She has been cleared to be discharged. Pain controlled. Continue pain control as per orthopedic surgery. Continue levothyroxine. Continue aspirin as per orthopedic surgery for DVT prophylaxis. Hemoglobin stable at 9.4. Discharge Planning The patient is cleared to be discharged. Tristian Guthrie MD Aug 16, 2017 12:17
[2017-08-16] MEDS: LACTATED RINGER'S 1000 ML INJ 1,000 ML IV SCH ×2 (12:30)
[2017-08-16] MEDS ORDERED: DOCUSATE SODIUM 100 MG CAP PO SCH (21:00)
== END 2017-08-16 14:58 | disposition home health service (06) | DRG 470 ==
LOC: HSDI 05:10 → N06B 14:28
PROVIDERS: ADMIT Orthopaedic Surgery; ATTEND Orthopaedic Surgery
PROC: 0SR904A Replacement of Right Hip Joint with Ceramic on Polyethylene Synthetic Substitute, Uncemented, Open Approach (ICD-10-PCS; principal; 2017-08-15 06:40)
DX: M87.851 Other osteonecrosis, right femur (principal); M16.11 Unilateral primary osteoarthritis, right hip; E03.9 Hypothyroidism, unspecified
CPT/HCPCS: 73502; 85014; 85018; 86850; 86900; 86901; 94150; C1776; C9290; J0690; J1100; J1580; J1885; J2250; J2270; J2370; J2405; J2710; J3010; J7120; L1830

== ENCOUNTER 2018-03-29 09:38 | Observation (INO) ==
--- NOTE | 2018-03-29 09:54 | ED ---
HPI General Chief Complaint: Respiratory Symptoms Stated Complaint: Chest Pain Time Seen by Provider: 03/29/18 09:45 Source: patient and family Mode of arrival: ambulatory Limitations: no limitations History of Present Illness HPI narrative: The patient is a 63-year-old female presented with complaint of epigastric pain that she perceived as indigestion that radiated to her back between the shoulder blades and into her left neck. Reports it is episodic lasting for a few seconds to a couple of minutes squeezing sensation. States she has associated shortness of breath. Did not take anything prior to arrival here. Has history of hip replacement this past August. She is not on anticoagulation. MD complaint: Reports chest pain STEMI Alert: No Onset (ago): hour(s) (2) Duration: intermittent Onset: during rest Pain location: Reports epigastric Severity: moderate Severity scale (1-10): 5 Quality: Reports tightness Pain radiation: Reports back Relieving factors: nothing Exacerbating factors: nothing Context: Denies recent illness, recent surgery, recent immobilization, recent travel and history of DVT/PE Associated symptoms: Reports diaphoresis and dyspnea; Denies nausea, vomiting, sense of impending doom, syncope, palpitations, fever, cough and leg swelling Treatments prior to arrival chest pain: Reports none Related Data On Oral Contraceptives: No Home Medications Medication Instructions Recorded Confirmed No Known Home Medications 03/29/18 03/29/18 Allergies Allergy/AdvReac Type Severity Reaction Status Date / Time No Known Allergies Allergy Unverified 03/29/18 09:42 Review of Systems ROS: all other systems reviewed are negative PMFSH History History Provided By: Patient, Family Member and Medical Record Surgical History Surgical History History of hip replacement (Acute) Social History Social History Smoking Status: Never smoker How Often Do You Have a Drink Containing Alcohol: Never Recent Travel in [place] within the Last 8 Weeks: No Recent Out of Country Travel within the Last 8 Weeks: No Exam Narrative Exam Narrative: GENERAL: Alert and oriented no distress. Well-nourished SKIN: Focused skin assessment warm/dry. HEAD: Atraumatic. Normocephalic. EYES: Pupils equal and round. No scleral icterus. No injection or drainage. ENT: No nasal bleeding or discharge. Mucous membranes pink and moist. NECK: Trachea midline. No JVD. CARDIOVASCULAR: Regular rate and rhythm. No murmur appreciated. RESPIRATORY: No accessory muscle use. Clear to auscultation. Breath sounds equal bilaterally. GASTROINTESTINAL: Abdomen soft, non-tender, nondistended. Hepatic and splenic margins not palpable. MUSCULOSKELETAL: No obvious deformities. No clubbing. No cyanosis. No edema. NEUROLOGICAL: Awake and alert. No obvious cranial nerve deficits. Motor grossly within normal limits. Normal speech. PSYCHIATRIC: Appropriate mood and affect; insight and judgment normal. Course Reevaluation(s) Reevaluation #1: the patient is resting comfortably in no distress with stable vitals. Dimer is elevated. Patient was notified that we will obtain a CTA chest to rule out Pulmonary Embolism. Time: 10:55 Initial Documented Vital Signs Pulse Rate 83 03/29/18 09:39 Respiratory Rate 20 03/29/18 09:39 Blood Pressure 161/77 H 03/29/18 09:39 Pulse Oximetry 99 03/29/18 09:39 Last Documented Vital Signs Pulse Rate 82 03/29/18 12:10 Respiratory Rate 17 03/29/18 12:10 Blood Pressure 138/65 03/29/18 12:10 Pulse Oximetry 96 03/29/18 12:10 Medical Decision Making MDM Narrative Medical decision making narrative: Signs of acute ischemia on EKG and initial cardiac enzymes. CT angio was obtained due to history hip surgery and it was negative for pulmonary embolism. She does have atelectasis bilaterally. Patient is a good candidate for chest pain unit. She will be placed under observation for further evaluation nad serial cardiac enzymes to R/O ACS. Medical Screen Exam Complete: Yes Emergency Medical Condition: Yes Lab Data Result diagrams: 03/29/18 09:45 03/29/18 09:45 Lab Results 03/29/18 03/29/18 03/29/18 Range/Units 09:45 09:45 09:45 WBC 7.2 (4.0-11.0) th/mm3 RBC 3.80 L (4.00-5.30) mil/mm3 Hgb 13.5 (11.6-15.3) gm/dL Hct 37.0 (35.0-46.0) % MCV 97.5 (80.0-100.0) fL MCH 35.5 H (27.0-34.0) pg MCHC 36.4 H (32.0-36.0) % RDW 13.7 (11.6-17.2) % Plt Count 269 (150-450) th/mm3 MPV 9.7 (7.0-11.0) fL Prelim Diff (Auto) Slide review pending Neut % (Auto) 63.9 (16.0-70.0) % Lymph % (Auto) 28.2 (9.0-44.0) % [place] % (Auto) 5.5 (0.0-8.0) % Eos % (Auto) 1.8 (0.0-4.0) % Baso % (Auto) 0.6 (0.0-2.0) % Neut # (Auto) 4.6 (1.8-7.7) th/mm3 Lymph # (Auto) 2.0 (1.0-4.8) th/mm3 [place] # (Auto) 0.4 (0.0-0.9) th/mm3 Eos # (Auto) 0.1 (0.0-0.4) th/mm3 Baso # (Auto) 0.0 (0.0-0.2) th/mm3 WBC Differential . Diff Scan Auto diff confirmed Differential Comment . PT 9.8 (9.8-11.6) sec INR 1.0 Ratio APTT 23.1 L (23.4-31.7) sec D-Dimer Quant (PE/DVT) 0.82 H (0.00-0.50) mg/L FEU Sodium 141 (136-145) meq/L Potassium 3.8 (3.5-5.1) meq/L Chloride 107 (98-107) meq/L Carbon Dioxide 23.9 (21.0-32.0) meq/L Anion Gap 10 (5-15) meq/L BUN 11 (7-18) mg/dL Creatinine 0.84 (0.50-1.00) mg/dL Estimated GFR 68 L (>89) mL/min Random Glucose 121 H (74-106) mg/dL Calcium 8.9 (8.5-10.1) mg/dL Total Bilirubin 0.3 (0.2-1.0) mg/dL AST 32 (15-37) U/L ALT 37 (10-53) U/L Alkaline Phosphatase 71 (45-117) U/L Total Creatine Kinase 166 (26-192) U/L CK-MB (CK-2) 2.1 (0.5-3.6) ng/mL Troponin I Less than 0.02 L (0.02-0.05) ng/mL C-Reactive Protein Less than 0.29 (0.00-0.30) mg/dL B-Natriuretic Peptide (0-100) pg/mL Total Protein 7.4 (6.4-8.2) g/dL Albumin 3.9 (3.4-5.0) g/dL 03/29/18 03/29/18 03/29/18 Range/Units 09:45 09:45 09:45 WBC (4.0-11.0) th/mm3 RBC (4.00-5.30) mil/mm3 Hgb (11.6-15.3) gm/dL Hct (35.0-46.0) % MCV (80.0-100.0) fL MCH (27.0-34.0) pg MCHC (32.0-36.0) % RDW (11.6-17.2) % Plt Count (150-450) th/mm3 MPV (7.0-11.0) fL Prelim Diff (Auto) Neut % (Auto) (16.0-70.0) % Lymph % (Auto) (9.0-44.0) % [place] % (Auto) (0.0-8.0) % Eos % (Auto) (0.0-4.0) % Baso % (Auto) (0.0-2.0) % Neut # (Auto) (1.8-7.7) th/mm3 Lymph # (Auto) (1.0-4.8) th/mm3 [place] # (Auto) (0.0-0.9) th/mm3 Eos # (Auto) (0.0-0.4) th/mm3 Baso # (Auto) (0.0-0.2) th/mm3 WBC Differential Diff Scan Differential Comment PT (9.8-11.6) sec INR Ratio APTT (23.4-31.7) sec D-Dimer Quant (PE/DVT) (0.00-0.50) mg/L FEU Sodium (136-145) meq/L Potassium (3.5-5.1) meq/L Chloride (98-107) meq/L Carbon Dioxide (21.0-32.0) meq/L Anion Gap (5-15) meq/L BUN (7-18) mg/dL Creatinine (0.50-1.00) mg/dL Estimated GFR (>89) mL/min Random Glucose (74-106) mg/dL Calcium (8.5-10.1) mg/dL Total Bilirubin (0.2-1.0) mg/dL AST (15-37) U/L ALT (10-53) U/L Alkaline Phosphatase (45-117) U/L Total Creatine Kinase Cancelled (26-192) U/L CK-MB (CK-2) (0.5-3.6) ng/mL Troponin I (0.02-0.05) ng/mL C-Reactive Protein Cancelled (0.00-0.30) mg/dL B-Natriuretic Peptide 19 (0-100) pg/mL Total Protein (6.4-8.2) g/dL Albumin (3.4-5.0) g/dL Imaging Data Radiologist's impression: Chest X-Ray 03/29/18 09:49 CONCLUSION: Negative examination. Chest CTA 03/29/18 10:52 CONCLUSION: 1. No evidence of pulmonary embolism. 2. Scattered posterior bibasilar atelectasis and/or scarring. 3. Cholelithiasis. 4. Small hiatal hernia. 5. Degenerative changes are noted throughout the thoracic spine. ECG Data EKG Prior to Arrival: No Attestation: I personally reviewed and interpreted this ECG as follows: Interpretation: EKG obtained on 1002 reveal sinus rhythm with occasional PVCs and a heart rate of [address]-T wave abnormalities. Normal axis. MA and QTc intervals within normal limits. No signs of acute ischemia Discharge Plan Discharge Disposition Patient Disposition: 30 Still Patient Discharge Condition Condition: Stable Discharge Details Diagnosis: Chest pain, atypical Physicians Team ED Provider: Chon Wilson Primary Care Provider: Herbie Bruner Attending Provider: Pato Braxton Discharge Interventions Interventions: Vital Signs Last Done: 03/29/18 12:10 Status ED Status: Admitted Observation Patient
[2018-03-29 10:14] LABS: Baso % (Auto) 0.6 % (0.0-2.0); Eos # (Auto) 0.1 th/mm3 (0.0-0.4); Eos % (Auto) 1.8 % (0.0-4.0); Hemoglobin 13.5 gm/dL (11.6-15.3); Lymph % (Auto) 28.2 % (9.0-44.0); Mean Corpuscular Hemoglobin 35.5 pg (27.0-34.0); Mean Corpuscular Volume 97.5 fL (80.0-100.0); Mean Platelet Volume 9.7 fL (7.0-11.0); Mono # (Auto) 0.4 th/mm3 (0.0-0.9); Mono % (Auto) 5.5 % (0.0-8.0); Neut # (Auto) 4.6 th/mm3 (1.8-7.7); Neut % (Auto) 63.9 % (16.0-70.0); Platelet Count 269 th/mm3 (150-450); Red Cell Distribution Width 13.7 % (11.6-17.2); White Blood Count 7.2 th/mm3 (4.0-11.0)
--- NOTE | 2018-03-29 10:14 | XR ---
EXAM DATE: 03/29/2018 10:03 AM EST AGE/SEX: 63 years / Female INDICATIONS: Short of breath x 1 day. CLINICAL DATA: This is the patient's initial encounter. Patient reports that signs and symptoms have been present for 1 day and indicates a pain score of 1/10. MEDICAL/SURGICAL HISTORY: Aneurysm, abdominal. None. COMPARISON: No prior exams available for comparison. FINDINGS: A single AP view of the chest demonstrates the lungs to be symmetrically aerated without evidence of mass, infiltrate or effusion. The cardiomediastinal contours are unremarkable. Osseous structures a re intact. CONCLUSION: Negative examination. Electronically signed by: Scott Gutierres MD 03/29/2018 10:13 AM EST
[2018-03-29 10:17] LABS: Mean Corpuscular HGB Conc 36.4 % (32.0-36.0)
[2018-03-29 10:23] LABS: Activated Partial Thrombo Time 23.1 sec (23.4-31.7); Prothrombin Time 9.8 sec (9.8-11.6)
[2018-03-29 10:26] LABS: Alanine Aminotransferase 37 U/L (10-53); Albumin 3.9 g/dL (3.4-5.0); Anion Gap 10 meq/L (5-15); Aspartate Aminotransferase 32 U/L (15-37); Blood Urea Nitrogen 11 mg/dL (7-18); Calcium 8.9 mg/dL (8.5-10.1); Carbon Dioxide 23.9 meq/L (21.0-32.0); Chloride 107 meq/L (98-107); Glomerular Filtration Rate 68 mL/min (>89); Glucose,Random 121 mg/dL (74-106); Potassium 3.8 meq/L (3.5-5.1); Sodium 141 meq/L (136-145)
[2018-03-29 10:29] LABS: Alkaline Phosphatase 71 U/L (45-117); Creatine Kinase 166 U/L (26-192); Total Protein 7.4 g/dL (6.4-8.2)
[2018-03-29 10:35] LABS: D-Dimer 0.82 mg/L FEU (0.00-0.50)
[2018-03-29 10:39] VITALS: RESP 17
[2018-03-29 10:42] LABS: Creatine Kinase MB 2.1 ng/mL (0.5-3.6)
--- NOTE | 2018-03-29 11:51 | CT ---
EXAM DATE: 03/29/2018 11:45 AM EST AGE/SEX: 63 years / Female INDICATIONS: Shortness of breath and pain between shoulder blades. CLINICAL DATA: This is the patient's initial encounter. Patient reports that signs and symptoms have been present for 1 day and indicates a pain score of 5/10. MEDICAL/SURGICAL HISTORY: None. Breast augmentation. RADIATION DOSE: 12.38 CTDI (mGy) COMPARISON: No prior exams available for comparison. TECHNIQUE: Volumetric scanning was performed using a multi-row detector CT scanner during bolus infu jean of 70 ml Omnipaque 350 (iohexol) nonionic water-soluble contrast as a single exam dose. The shari a was post processed with a variety of visualization algorithms including full volume maximum intensi ty projection and sliding thin slab reformation. Using automated exposure control and adjustment of t he mA and/or kV according to patient size, radiation dose was kept as low as reasonably achievable to obtain optimal diagnostic quality images. DICOM format image data is available electronically for r eview and comparison. FINDINGS: Pulmonary Arteries: No filling defects are seen in the pulmonary arteries out to the subsegmental ve ssels. The left and right pulmonary arteries are normal in diameter. Lung: Scattered posterior bibasilar atelectasis and/or scarring is noted. Effusion: None. Mediastinum: No evidence of mediastinal or hilar adenopathy. Other: The axilla is unremarkable. Calcified gallstones are noted within the gallbladder. Small hiat al hernia is noted. Degenerative changes are noted throughout the thoracic spine. CONCLUSION: 1. No evidence of pulmonary embolism. 2. Scattered posterior bibasilar atelectasis and/or scarring. 3. Cholelithiasis. 4. Small hiatal hernia. 5. Degenerative changes are noted throughout the thoracic spine. Electronically signed by: Pasquale Caldwell MD 03/29/2018 11:49 AM EST
[2018-03-29] MEDS ORDERED: Aluminum/Magnesium/Simethacone Susp 30 ML UDC PO ONE (12:45)
[2018-03-29] MEDS ORDERED: Atropine/Scopolamine/Hyoscyamine/Phenobarb 10 ML Liq UDC PO ONE (12:47)
--- NOTE | 2018-03-29 12:49 | P.PNCA ---
Subjective Interval history: Very pleasant 63-year-old lady seen in concert with the physician engineering mechanic. Her history was reviewed and Unas[facility] and is as recorded in his note. Essentially she has had a night of epigastric discomfort radiating through to the back but also into her jaw. She had some nausea little bit of shortness of breath and diaphoresis this morning. She describes this as a squeezing or pressure-like sensation other than a recent hip by Dr. CJ Sellers, some migraine headaches, and intermittent indigestion her history is otherwise remarkably unremarkable. She is on no medications she does have a history of retinal detachments right and left eye but this is distant she is already ruled out by CTA for pulmonary embolus and has negative enzymes EKG at this time. Further evaluation with nuclear stress test will be ordered. Medications and Allergies Active Medications: Active Medications Sodium Chloride (Ns Flush) 2 ml IV.FLUSH BID MINDA Sodium Chloride (Ns Flush) 2 ml IV.FLUSH PRN PRN PRN Reason: FLUSH AFTER USING IV ACCESS Allergies Allergy/AdvReac Type Severity Reaction Status Date / Time No Known Allergies Allergy Unverified 03/29/18 09:42 Home Medications Medication Instructions Recorded Confirmed Type No Known Home Medications 03/29/18 03/29/18 History Physical Exam Vital signs: Vital Signs 03/29/18 09:39 03/29/18 09:49 03/29/18 10:39 Pulse Rate 83 78 Respiratory Rate 20 17 Blood Pressure 161/77 H 147/66 H Pulse Oximetry 99 98 100 03/29/18 12:10 Pulse Rate 82 Respiratory Rate 17 Blood Pressure 138/65 Pulse Oximetry 96 Intake & Output 03/28/18 03/29/18 03/29/18 18:59 06:59 18:59 Weight 65.771 kg Narrative: Well-nourished well-developed woman sitting up in bed alert and oriented Skin warm and dry, tattoo right great toe Head normocephalic atraumatic hair thinning slightly Eyes pupils slightly this equal and mildly responsive to light with bilateral intraocular lenses Mouth mucous membranes moist tongue well papillated upper and lower plates in place with no lesions Neck supple no JVD masses nodes or bruits Chest nontender clear to auscultation with no rales wheezes or rhonchi Cardiovascular PMI is not displaced there is a regular sinus rhythm with no gallop rub or murmur Abdomen is soft nontender no guarding or rebound no masses palpated Extremities no clubbing cyanosis or edema Results 03/29/18 09:45 03/29/18 09:45 Cardiac Enzymes 03/29/18 03/29/18 Range/Units 09:45 09:45 AST 32 (15-37) U/L CK-MB (CK-2) 2.1 (0.5-3.6) ng/mL Troponin I Less than 0.02 L (0.02-0.05) ng/mL B-Natriuretic Peptide 19 (0-100) pg/mL Coagulation 03/29/18 03/29/18 Range/Units 09:45 09:45 PT 9.8 (9.8-11.6) sec APTT 23.1 L (23.4-31.7) sec B-Natriuretic Peptide 19 (0-100) pg/mL CBC 03/29/18 Range/Units 09:45 WBC 7.2 (4.0-11.0) th/mm3 RBC 3.80 L (4.00-5.30) mil/mm3 Hgb 13.5 (11.6-15.3) gm/dL Hct 37.0 (35.0-46.0) % Plt Count 269 (150-450) th/mm3 Neut # (Auto) 4.6 (1.8-7.7) th/mm3 Lymph # (Auto) 2.0 (1.0-4.8) th/mm3 [place] # (Auto) 0.4 (0.0-0.9) th/mm3 Eos # (Auto) 0.1 (0.0-0.4) th/mm3 Baso # (Auto) 0.0 (0.0-0.2) th/mm3 Comprehensive Metabolic Panel 03/29/18 Range/Units 09:45 Sodium 141 (136-145) meq/L Potassium 3.8 (3.5-5.1) meq/L Chloride 107 (98-107) meq/L Carbon Dioxide 23.9 (21.0-32.0) meq/L BUN 11 (7-18) mg/dL Creatinine 0.84 (0.50-1.00) mg/dL Calcium 8.9 (8.5-10.1) mg/dL AST 32 (15-37) U/L ALT 37 (10-53) U/L Alkaline Phosphatase 71 (45-117) U/L Total Protein 7.4 (6.4-8.2) g/dL Albumin 3.9 (3.4-5.0) g/dL Intake and Output 03/28/18 03/29/18 03/29/18 22:59 06:59 14:59 Other: Weight 65.771 kg Patient Weight 03/30/18 06:59 Weight 65.771 kg - Imaging and Cardiology Imaging: Impressions Chest X-Ray 03/29/18 09:49 CONCLUSION: Negative examination. Chest CTA 03/29/18 10:52 CONCLUSION: 1. No evidence of pulmonary embolism. 2. Scattered posterior bibasilar atelectasis and/or scarring. 3. Cholelithiasis. 4. Small hiatal hernia. 5. Degenerative changes are noted throughout the thoracic spine. Assessment and Plan - Plan Patient will be ruled out using standard chest pain center protocol and a nuclear scan since she has had a recent hip replacement. If negative she will be returned to her primary care physician for further GI evaluation if positive she will be evaluated with cardiac consultation. End dictation
--- NOTE | 2018-03-29 12:55 | P.HPCA ---
History of Present Illness Primary Care Physician: Herbie Bruner MD, R3 Chief Complaint: Chest pain History of Present Illness: This is a 63-year-old female without history of hypertension, hyperlipidemia, diabetes, CAD that presents to ED with complaint of developing discomfort chest and points to epigastric region will be after midnight last evening. She also had a discomfort radiated to her back between her shoulder blades. Essentially was constant. The discomfort at her shoulder blades pressure in the discomfort in the epigastric region describes as a ache. Around 5:00 morning she began to feel nauseous and had a discomfort into the jaw. Is also lasted for hours. Then around 8:00 this morning she developed some diaphoresis and shortness of breath. Still has discomfort but not as intense. States she has had heartburn in the past. She tried some Tums without relief. Denies recent illness. Denies fevers or chills. States she essentially is healthy. She used to have hypothyroidism but states that her doctors have been checking her thyroid panels and they have been normal so she has not been on medication for she had a hip replacement also in August. She believes that she has recovered fine from that. Denies hypertension, hyperlipidemia, diabetes, and CAD. Lifetime non-smoker. She is adopted and does not know all of her family but she does know of her mother's medical history and is not aware of any heart issues. - Diagnosis (1) Chest pain Review of Systems General: Patient denies fevers, chills, and recent travel. HEENT: Patient denies headache, sore throat, difficulty swallowing. Cardiovascular: Has the chest discomfort as mentioned above. Denies sensation of heart beating rapidly or irregularly. No syncope. She was diaphoretic. Respiratory: She was short of breath. Denies inspirational chest discomfort. Denies coughing wheezing or hemoptysis. GI: She was nauseous this morning. Plan of pain and points to the epigastric region. Patient denies vomiting, diarrhea, bloody stools. Musculoskeletal: Patient denies joint pain or edema. Denies calf pain or edema. Neurovascular: Patient denies numbness, tingling, weakness in extremities. Denies headache. Endocrine: Denies polyuria and polydipsia. Hematologic: Denies easy bruising. Skin: Denies rash or itching. PMFSH - History History Provided By: Patient, Family Member, Medical Record - Surgical History Surgical History: Surgical History (Last Reviewed 03/29/18 @ 10:05 by Chon Wilson DO) History of hip replacement - Tobacco History Smoking Status: Never smoker - Alcohol History How Often Do You Have a Drink Containing Alcohol: Never - Travel History Recent Travel in the [place] Within the Last 8 Weeks: No Recent Travel Out of the Country Within the Last 8 Weeks: No - Immunization History Tetanus Immunization: <5 Years Medications and Allergies Active Medications: Active Medications Al Hydrox/Mg Hydrox/Simethicone (Mag-Al Plus Susp Liq) 30 ml PO ONCE ONE Stop: 03/29/18 12:46 Belladonna Alkaloids/Phenobarbital ( Liq) 10 ml PO ONCE ONE Stop: 03/29/18 12:48 Lidocaine HCl (Xylocaine 2% Viscous) 10 ml SWISH-SWAL ONCE STA Stop: 03/29/18 12:46 Sodium Chloride (Ns Flush) 2 ml IV.FLUSH BID MINDA Sodium Chloride (Ns Flush) 2 ml IV.FLUSH PRN PRN PRN Reason: FLUSH AFTER USING IV ACCESS Allergies Allergy/AdvReac Type Severity Reaction Status Date / Time No Known Allergies Allergy Unverified 03/29/18 09:42 Home Medications Medication Instructions Recorded Confirmed Type No Known Home Medications 03/29/18 03/29/18 History Exam Vital signs: Vital Signs 03/29/18 09:39 03/29/18 09:49 03/29/18 10:39 Pulse Rate 83 78 Respiratory Rate 20 17 Blood Pressure 161/77 H 147/66 H Pulse Oximetry 99 98 100 03/29/18 12:10 Pulse Rate 82 Respiratory Rate 17 Blood Pressure 138/65 Pulse Oximetry 96 Intake & Output 03/28/18 03/29/18 03/29/18 18:59 06:59 18:59 Weight 65.771 kg Narrative: GENERAL: This is a well-nourished, well-developed patient, in no apparent distress. Patient speaks in clear complete sentences. Patient is pleasant. HEENT: Head is atraumatic and normocephalic. Neck is supple without lymphadenopathy and trachea is midline. No JVD or carotid bruits. CARDIOVASCULAR: Regular rate and rhythm without murmurs, gallops, or rubs. RESPIRATORY: Clear to auscultation. Breath sounds equal bilaterally. No wheezes , rales, or rhonchi. Chest wall is nontender. No use of accessory muscles. GASTROINTESTINAL: Abdomen is nontender, nondistended. Abdomen soft. No obvious pulsatile mass or bruit. No CVA tenderness. Strong femoral pulses bilaterally. Normal bowel sounds in all quadrants. MUSCULOSKELETAL: Patient is moving upper and lower extremities freely. No calf tenderness or edema, no Homans sign. Strong pulses in upper and lower extremities. NEUROLOGICAL: Patient is alert and oriented. Cranial nerves 2-12 are grossly intact. No focal deficits and speech is clear. SKIN: No rash and turgor is normal. Results 03/29/18 09:45 03/29/18 09:45 Cardiac Enzymes 03/29/18 03/29/18 Range/Units 09:45 09:45 AST 32 (15-37) U/L CK-MB (CK-2) 2.1 (0.5-3.6) ng/mL Troponin I Less than 0.02 L (0.02-0.05) ng/mL B-Natriuretic Peptide 19 (0-100) pg/mL Coagulation 03/29/18 03/29/18 Range/Units 09:45 09:45 PT 9.8 (9.8-11.6) sec APTT 23.1 L (23.4-31.7) sec B-Natriuretic Peptide 19 (0-100) pg/mL CBC 03/29/18 Range/Units 09:45 WBC 7.2 (4.0-11.0) th/mm3 RBC 3.80 L (4.00-5.30) mil/mm3 Hgb 13.5 (11.6-15.3) gm/dL Hct 37.0 (35.0-46.0) % Plt Count 269 (150-450) th/mm3 Neut # (Auto) 4.6 (1.8-7.7) th/mm3 Lymph # (Auto) 2.0 (1.0-4.8) th/mm3 [place] # (Auto) 0.4 (0.0-0.9) th/mm3 Eos # (Auto) 0.1 (0.0-0.4) th/mm3 Baso # (Auto) 0.0 (0.0-0.2) th/mm3 Comprehensive Metabolic Panel 03/29/18 Range/Units 09:45 Sodium 141 (136-145) meq/L Potassium 3.8 (3.5-5.1) meq/L Chloride 107 (98-107) meq/L Carbon Dioxide 23.9 (21.0-32.0) meq/L BUN 11 (7-18) mg/dL Creatinine 0.84 (0.50-1.00) mg/dL Calcium 8.9 (8.5-10.1) mg/dL AST 32 (15-37) U/L ALT 37 (10-53) U/L Alkaline Phosphatase 71 (45-117) U/L Total Protein 7.4 (6.4-8.2) g/dL Albumin 3.9 (3.4-5.0) g/dL Intake and Output 03/28/18 03/29/18 03/29/18 22:59 06:59 14:59 Other: Weight 65.771 kg Patient Weight 03/30/18 06:59 Weight 65.771 kg - Imaging and Cardiology Imaging: Impressions Chest X-Ray 03/29/18 09:49 CONCLUSION: Negative examination. Chest CTA 03/29/18 10:52 CONCLUSION: 1. No evidence of pulmonary embolism. 2. Scattered posterior bibasilar atelectasis and/or scarring. 3. Cholelithiasis. 4. Small hiatal hernia. 5. Degenerative changes are noted throughout the thoracic spine. EKG interpretations - EKG EKG shows: sinus rhythm (Initial EKG is sinus rhythm with nonspecific lateral ST -T changes. ) Caprini VTE Risk Assessment Caprini VTE Risk Assessment: Moderate/High Risk (score >= 2) Caprini Risk Assessment Model: Point Value = 1 Point Value = 2 Point Value = 3 Point Value = 5 Age 41-60 Minor surgery BMI > 25 kg/m2 Swollen legs Varicose veins or History of unexplained or recurrent spontaneous Oral contraceptives or hormone replacement Sepsis (< 1 month) Serious lung disease, including pneumonia (< 1 month) Abnormal pulmonary function Acute myocardial infarction Congestive heart failure (< 1 month) History of inflammatory bowel disease Medical patient at bed rest Age 61-74 Arthroscopic surgery Major open surgery (> 45 min) Laparoscopic surgery (> 45 min) Malignancy Confined to bed (> 72 hours) Immobilizing plaster cast Central venous access Age >= 75 History of VTE Family history of VTE Factor V Leiden Prothrombin [id number] Lupus anticoagulant Anticardiolipin antibodies Elevated serum homocysteine Heparin-induced thrombocytopenia Other congenital or acquired thrombophilia Stroke (< 1 month) Elective arthroplasty Hip, pelvis, or leg fracture Acute spinal cord injury (< 1 month) Prophylaxis Regimen: Total Risk Factor Score Risk Level Prophylaxis Regimen 0-1 Low Early ambulation 2 Moderate Order ONE of the following: *Sequential Compression Device (SCD) *Heparin 5000 units SQ BID 3-4 Higher Order ONE of the following medications: *Heparin 5000 units SQ TID *Enoxaparin/Lovenox 40 mg SQ daily (WT < 150 kg, CrCl > 30 mL/min) *Enoxaparin/Lovenox 30 mg SQ daily (WT < 150 kg, CrCl > 10-29 mL/min) *Enoxaparin/Lovenox 30 mg SQ BID (WT < 150 kg, CrCl > 30 mL/min) AND/OR *Sequential Compression Device (SCD) 5 or more Highest Order ONE of the following medications: *Heparin 5000 units SQ TID (Preferred with Epidurals) *Enoxaparin/Lovenox 40 mg SQ daily (WT < 150 kg, CrCl > 30 mL/min) *Enoxaparin/Lovenox 30 mg SQ daily (WT < 150 kg, CrCl > 10-29 mL/min) *Enoxaparin/Lovenox 30 mg SQ BID (WT < 150 kg, CrCl > 30 mL/min) AND *Sequential Compression Device (SCD) Assessment and Plan - Assessment (1) Chest pain Code(s): R07.9 - Chest pain, unspecified Status: Acute - Plan * Chest pain: Patient will be ruled out using standard chest pain center protocol and a nuclear scan since she has had a recent hip replacement. If negative she will be returned to her primary care physician for further GI evaluation if positive she will be evaluated with cardiac consultation. End dictation Patient is agreeable to this plan. She is stable at this time. Return to ED for interval issues.
[2018-03-29 13:43] LABS: Creatine Kinase 168 U/L (26-192)
[2018-03-29 14:26] VITALS: BP 131/76; PULSE 100; O2SAT 100
[2018-03-29] MEDS ORDERED: Regadenoson Inj 0.4 MG/5 ML Syringe IV.PUSH ONE (15:34)
--- NOTE | 2018-03-29 17:01 | NM ---
EXAM DATE: 03/29/2018 4:57 PM EST AGE/SEX: 63 years / Female INDICATIONS:Angina. . Chest pain radiating to the back with dyspnea. CLINICAL DATA: This is the patient's initial encounter. Patient reports that signs and symptoms have been present for 1 day and indicates a pain score of 6/10. MEDICAL/SURGICAL HISTORY: None. . Hip replacement. COMPARISON: No prior exams available for comparison. DOSE: 8.1 mCi Tc 99m Myoview at rest 27.4 mCi [id number] at stress 0.4 mg Lexiscan STRESS SYMPTOMS: None. EJECTION FRACTION: 49 % TECHNIQUE: The patient underwent pharmacologic stress with infusion of prescribed dose. Continuous ECG tracing was monitored during stress. Gated SPECT imaging was performed after stress and conventi onal SPECT imaging was performed at rest. The examination was performed on a SPECT/CT scanner, both attenuation and non-corrected datasets were reviewed. FINDINGS: Distribution: The maximum perfused segment at stress is in the anterior wall. Perfusion Study: The pattern of perfusion at stress is within normal limits. Gated Study: No focal wall motion abnormality. The ejection fraction is calculated at 49%. RISK CATEGORY: Intermediate (1-3 % Annual Mortality Rate) CONCLUSION: 1. No reversible perfusion defects or focal wall motion abnormality. 2. Ejection fraction 49%. Electronically signed by: Andrew Bui MD 03/29/2018 5:00 PM EST
--- NOTE | 2018-03-29 20:41 | ECG ---
Date Performed: 03/29/2018 Time Performed: 12:50:15 PTAGE: 63 years EKG: Sinus rhythm WITH OCCASIONAL SUPRAVENTRICULAR PREMATURE COMPLEXES NONSPECIFIC ST & T-WAVE ABNORMALITY Since the p revious tracing, no significant change noted BORDERLINE ECG NO PREVIOUS TRACING DOCTOR: Fabrizio Teague Interpretating Date/Time 03/29/2018 20:40:14
--- NOTE | 2018-03-29 20:41 | ECG ---
Date Performed: 03/29/2018 Time Performed: 10:02:48 PTAGE: 63 years EKG: Sinus rhythm WITH OCCASIONAL SUPRAVENTRICULAR PREMATURE COMPLEXES NONSPECIFIC ST & T-WAVE ABNORMALITY Compared to previous tracing, nonspecific changes are slightly more prominent. PACs are present ABNORMAL ECG PREVIOUS TRACING : 06/23/2017 08.34 DOCTOR: Fabrizio Teague Interpretating Date/Time 03/29/2018 20:40:05
--- NOTE | 2018-03-30 11:47 | TR ---
Date Performed: 03/29/2018 Time Performed: 15:38:51 DOCTOR: Pato Braxton DRUG LIST: CLINICAL HISTORY: REASON FOR TEST: Angina REASON FOR ENDING: OBSERVATION: CONCLUSION: Lexiscan stress test was performed under standard four minute protocol. Radionuclide was injected one minute prior to ending the test. Non specific electrocardiographic abormalities wer e present but non diagnostic of ischemia. Nuclear imaging and interpretation are pending. COMMENTS: Subsequent scanning showed no reversable defects to suggest ischemia.
== END 2018-03-29 17:57 | disposition home or self-care (01) ==
LOC: NEPC 09:38 → NEDA 09:38 → NEPFCDU 16:34
PROVIDERS: ADMIT Internal Medicine Interventional Cardiology; ATTEND Internal Medicine Interventional Cardiology
DX: K44.9 Diaphragmatic hernia without obstruction or gangrene; Z96.649 Presence of unspecified artificial hip joint; R94.31 Abnormal electrocardiogram [ECG] [EKG]; K80.20 Calculus of gallbladder without cholecystitis without obstruction; E03.9 Hypothyroidism, unspecified; R07.9 Chest pain, unspecified